=== PATIENT | female | born 1960 ===

== ENCOUNTER 2016-07-09 17:33 | Emergency (ER) | payer BC ==
[2016-07-09 17:33] VITALS: BMI 24.0
[2016-07-09 17:37] VITALS: PULSE 62; RESP 16; O2SAT 100
[2016-07-09] MEDS ORDERED: Sodium Chloride 0.9% 1,000 ML IV STA (18:10)
--- NOTE | 2016-07-09 18:10 | ED PDOC ---
HPI: Abdomen Time Seen by Provider: 07/09/16 17:46 Chief Complaint (Nursing): GI Problem Chief Complaint (Provider): Vomit History Per: Patient History/Exam Limitations: no limitations Onset/Duration Of Symptoms: Days (Today) Outside of [place] travel?: No Current Symptoms Are (Timing): Still Present Additional Complaint(s): Nausea, vomit, nonbloody after eating chicken and pasta today. No diarrhea. Has left upper side abd pain as well. No dysuria. No back pain, cough, congestion, runny nose, chest pain, dyspnea, palpitations. No fever. No leg pain. Past Medical History Reviewed: Nursing Documentation, Vital Signs Vital Signs: Last Vital Signs Temp 97.8 F 07/09/16 17:35 Pulse 62 07/09/16 17:35 Resp 16 07/09/16 17:35 BP 150/81 07/09/16 17:35 Pulse Ox 100 07/09/16 18:28 - Medical History PMH: Anemia (due to vaginal bleeding), Atrial Fibrillation (Isolated episode (1x )) Denies: Alzheimer's Disease, Anxiety, Arthritis, Asthma, Bipolar Disorder, Bronchitis, CAD, Cardia Arrhythmia, CHF, COPD, Crohn's Disease, Dementia, Depression, Diverticulitis, Emphysema, Fractures, Gastritis, Gall Bladder Disease, HIV, HTN, Hypercholesterolemia, Hyperthyroidism, Kidney Stones, Migraine, Mitral Valve Prolapse, Multiple Sclerosis, Osteoporosis, Pancreatitis , Paranoia, Parkinson's Disease, Peripheral Edema, Pneumonia, Post Traumatic Stress Disorder, Pulmonary Embolism, Chronic Kidney Disease, Rheumatoid Arthritis, Schizophrenia, Seizures, Sickle Cell Disease, Sexually Transmitted Disease, Sleep Apnea, TIA Other PMH: thyroid dz - Surgical History Surgical History: Tonsillectomy Denies: Appendectomy, CABG, Carotid Endarterectomy, Cholecystectomy, Coronary Stent, Pacemaker - Family History Family History: States: Unknown Family Hx - Social History Current smoker - smoking cessation education provided: No Alcohol: None Drugs: Denies - Home Medications Home Medications: Ambulatory Orders Medication Instructions Recorded Aspirin [Aspirin Chewable] 81 mg PO DAILY #0 chew 12/14/14 Aspirin [Aspirin Chewable] 81 mg PO DAILY #30 chew 03/03/16 Levothyroxine [Synthroid] 75 mcg PO DAILY@0630 03/03/16 Levothyroxine [Synthroid] 75 mcg PO DAILY@629 #30 tab 03/03/16 Metoprolol Tartrate [Lopressor] 25 mg PO Q8 #90 tab 03/03/16 Ondansetron [Zofran] 4 mg PO Q8H PRN #6 tab 07/09/16 - Allergies Allergies/Adverse Reactions: Allergies Allergy/AdvReac Type Severity Reaction Status Date / Time diphenhydramine HCl Allergy DIZZINESS Verified 07/09/16 17:35 [From Benadryl] Penicillins Allergy RASH Verified 07/09/16 17:35 Review of Systems ROS Statement: Except As Marked, All Systems Reviewed And Found Negative Gastrointestinal: Positive for: Nausea, Vomiting, Abdominal Pain Physical Exam - Reviewed Nursing Documentation Reviewed: Yes Vital Signs Reviewed: Yes - Physical Exam Appears: Positive for: Non-toxic, No Acute Distress Head Exam: Positive for: ATRAUMATIC, NORMAL INSPECTION, NORMOCEPHALIC Skin: Positive for: Normal Color, Warm, DRY Eye Exam: Positive for: EOMI, Normal appearance, PERRL ENT: Positive for: Normal ENT Inspection Neck: Positive for: Normal, Painless ROM Cardiovascular/Chest: Positive for: Regular Rate, Rhythm Respiratory: Positive for: CNT, Normal Breath Sounds Gastrointestinal/Abdominal: Positive for: Bowel Sounds, Soft, Tenderness (mild tender upper left abd lateral) Back: Positive for: Normal Inspection. Negative for: L CVA Tenderness, R CVA Tenderness Extremity: Positive for: Normal ROM. Negative for: Tenderness, Pedal Edema Neurologic/Psych: Positive for: Alert, Oriented - Laboratory Results Result Diagrams: 07/09/16 18:21 07/09/16 18:21 Interpretation Of Abn Labs: 11 wbc, 21 bun - ECG O2 Sat by Pulse Oximetry: 100 Pulse Ox Interpretation: Normal - Progress ED Course And Treament: 1843: Stable. AAOx3. Symptoms improved. Pt. 11 wbc likely reactive from nausea/vomit/pain. Tolerated PO. Fu with pcp. Disposition - Clinical Impression Clinical Impression: Diarrhea, Vomiting, Abdominal pain - Patient ED Disposition Is Patient to be Admitted: No Counseled Patient/Family Regarding: Studies Performed, Diagnosis, Need For Followup, Rx Given - Disposition Referrals: [facility] [Outside] - 07/13/16 Disposition: Routine/Home Disposition Time: 18:46 Condition: STABLE Additional Instructions: Return if not better in 3 days. Prescriptions: Ondansetron [Zofran] 4 mg PO Q8H PRN #6 tab PRN Reason: Nausea/Vomiting Instructions: Acute Nausea and Vomiting (ED), Acute Diarrhea (ED), Acute Abdominal Pain (ED)
[2016-07-09 18:30] LABS: BASO % 0.2 % (0.0-2.0); EOS % 0.1 % (0.0-4.0); HEMATOCRIT 45.2 % (34.0-47.0); LYMPH # 0.8 K/uL (1.0-4.3); LYMPH % 7.5 % (20.0-40.0); MEAN CELL VOLUME 78.2 fl (81.0-99.0); MEAN CORPUSCULAR HEMOGLOBIN 24.6 pg (27.0-31.0); MEAN CORPUSCULAR HGB CONC 31.5 g/dL (33.0-37.0); MONO # 0.6 K/uL (0.0-0.8); MONO % 5.3 % (0.0-10.0); NEUT # 9.6 K/uL (1.8-7.0); NEUT % 86.9 % (50.0-75.0); PLATELET COUNT 243 K/uL (130-400); RED CELL DISTRIBUTION WIDTH 14.9 % (11.5-14.5)
[2016-07-09 18:41] LABS: ALB/GLOB RATIO 1.6 (1.0-2.1); ALKALINE PHOSPHATASE 73 U/L (38-126); ALT/SGPT 38 U/L (9-52); AST/SGOT 29 U/L (14-36); BILIRUBIN,TOTAL 0.3 mg/dl (0.2-1.3); BLOOD UREA NITROGEN 21 mg/dl (7-17); CALCIUM 10.4 mg/dL (8.4-10.2); CARBON DIOXIDE 25 mmol/L (22-30); CHLORIDE 104 mmol/L (98-107); GFR AFRICAN-AMERICAN > 60; GLUCOSE,RANDOM 123 mg/dL (65-105); LIPASE 184 U/L (23-300); POTASSIUM 3.9 MMOL/L (3.6-5.0); SODIUM 140 mmol/l (132-148)
[2016-07-09 20:36] VITALS: BP 136/75; TEMP 98.9
[2016-07-09 21:44] LABS: NEUTROPHIL 82 % (42-75); TOTAL CELLS COUNTED 100
== END 2016-07-09 19:45 | disposition home or self-care (01) ==
LOC: H.ER 17:33
DX: R11.2 Nausea with vomiting, unspecified (principal); R19.7 Diarrhea, unspecified
CPT/HCPCS: 80053; 82948; 83690; 85025; 96374; 96375; 99285; J1885; J2405; J7040

== ENCOUNTER 2016-07-23 16:44 | Emergency (ER) | payer BC ==
[2016-07-23 16:44] VITALS: BMI 24.0
[2016-07-23 16:58] VITALS: BP 109/78; PULSE 63; RESP 16; TEMP 98; O2SAT 99
--- NOTE | 2016-07-23 17:15 | ED PDOC ---
Lower Extremity Pain/Injury Time Seen by Provider: 07/23/16 17:14 Chief Complaint (Nursing): Lower Extremity Problem/Injury Chief Complaint (Provider): leg pain History Per: Patient History/Exam Limitations: no limitations Onset/Duration Of Symptoms: Persistent (2 weeks ) Current Symptoms Are (Timing): Still Present Severity: Moderate Additional Complaint(s): Karly Martell is a 56 y/o female presenting to the ER on 07/23/2016 with complaints of persistent left leg pain x2 weeks. Patient denies any trauma to the affected area. She states the pain has been progressively getting worse over the past two weeks, prompting her to seek medical evaluation. No fever or chills, no recent travel. Past Medical History Reviewed: Historical Data, Nursing Documentation, Vital Signs Vital Signs: Last Vital Signs Temp 98.0 F 07/23/16 16:56 Pulse 63 07/23/16 16:56 Resp 16 07/23/16 16:56 BP 109/78 07/23/16 16:56 Pulse Ox 99 07/23/16 16:56 - Medical History PMH: Atrial Fibrillation (Isolated episode (1x)), Hypothyroidism - Surgical History Surgical History: Tonsillectomy - Family History Family History: States: No Known Family Hx - Living Arrangements Living Arrangements: With Family - Social History Current smoker - smoking cessation education provided: No Alcohol: None Drugs: Denies - Home Medications Home Medications: Ambulatory Orders Medication Instructions Recorded Aspirin [Aspirin Chewable] 81 mg PO DAILY #0 chew 12/14/14 Aspirin [Aspirin Chewable] 81 mg PO DAILY #30 chew 03/03/16 Levothyroxine [Synthroid] 75 mcg PO DAILY@0630 03/03/16 Levothyroxine [Synthroid] 75 mcg PO DAILY@0630 #30 tab 03/03/16 Metoprolol Tartrate [Lopressor] 25 mg PO Q8 #90 tab 03/03/16 Ondansetron [Zofran] 4 mg PO Q8H PRN #6 tab 07/09/16 - Allergies Allergies/Adverse Reactions: Allergies Allergy/AdvReac Type Severity Reaction Status Date / Time diphenhydramine HCl Allergy DIZZINESS Verified 07/23/16 16:55 [From Benadryl] Penicillins Allergy RASH Verified 07/23/16 16:55 Wells Criteria for PE - Wells Criteria for Pulmonary Embolism Clinical Signs and Symptoms of DVT: No P.E is #1 Diagnosis, or Equally Likely: No Heart Rate >100: No Immobilization at least 3 days;Surgery previous 4 weeks: No Previous, objectively diagnosed PE or DVT: No Hemoptysis: No Malignancy w/treatment within 6 months, or palliative: No Total Score: 0 Review of Systems ROS Statement: Except As Marked, All Systems Reviewed And Found Negative Constitutional: Negative for: Fever Cardiovascular: Negative for: Chest Pain Respiratory: Negative for: Cough Gastrointestinal: Negative for: Nausea, Vomiting Musculoskeletal: Positive for: Leg Pain ((+) left) Neurological: Negative for: Weakness, Numbness Physical Exam - Reviewed Nursing Documentation Reviewed: Yes Vital Signs Reviewed: Yes - Physical Exam Appears: Positive for: Non-toxic, No Acute Distress Head Exam: Positive for: ATRAUMATIC, NORMOCEPHALIC Skin: Positive for: Normal Color. Negative for: Rash Eye Exam: Positive for: Normal appearance Extremity: Positive for: Normal ROM ((+) full ROM on left knee, hip, and ankle) , Tenderness ((+) ttp w/ slight ecchymosis to left anterior bartholomew), Calf Tenderness ((+) minimum ttp ), Other ((+) normal distal sensation left leg). Negative for: Deformity, Swelling Neurologic/Psych: Positive for: Alert, Oriented, Gait (steady). Negative for: Motor/Sensory Deficits - ECG O2 Sat by Pulse Oximetry: 99 Pulse Ox Interpretation: Normal - Other Rad Left tib/fib x-ray X-Ray: Interpreted by Me, Viewed By Me X-Ray Interpretation: no fx, no dis Doppler left leg X-Ray: Read By Radiologist X-Ray Interpretation: no DVT Medical Decision Making Medical Decision Makin:14 Initial Impression- 56 y/o female with left leg pain Initial Plan- * Tylenol 650 mg PO * US Duplex Lower Extremity * XR Tibia Fibula * Re-evaluate 18:48 Ultrasound and XR are both negative. Case was d/w PMD Dr. Fitzgerald who is aware of diagnostic testing results and agrees with plan to discharge patient and have her follow up this coming Wednesday as scheduled in his office. Pt was instructed to rest leg and apply ice , and take tylenol as needed for pain. Documented by Oracio Mckenna, acting as a scribe for Paula Lujan PA-C All medical record entries made by the Scribe were at my direction and personally dictated by me. I have reviewed the chart and agree that the record accurately reflects my personal performance of the history, physical exam, medical decision making, and the department course for this patient. I have also personally directed, reviewed, and agree with the discharge instructions and disposition. Disposition - Clinical Impression Clinical Impression: Left leg pain - Patient ED Disposition Is Patient to be Admitted: No Counseled Patient/Family Regarding: Studies Performed, Diagnosis, Need For Followup - Disposition Referrals: Ekaterina Fitzgerald MD [Family Provider] - Disposition: Routine/Home Disposition Time: 19:08 Condition: STABLE Additional Instructions: Ice, rest and elevate affected leg as often as possible. Tylenol every 4-6 hours as needed for pain. Follow-up as scheduled next Wednesday with your primary doctor. Return to emergency department sooner for acutely worsening symptoms. Instructions: Leg Pain (ED)
--- NOTE | 2016-07-23 18:37 | US ---
Left lower extremity ultrasound Indication: Pain, swelling Technique: Duplex ultrasound evaluation of the left lower extremity Comparison: None available Findings: There is normal flow, compressibility, and augmentation of the left common femoral, femoral, and popliteal veins. The left posterior tibial vein appears patent. Impression: No evidence of deep venous thrombosis in the left lower extremity.
--- NOTE | 2016-07-24 08:34 | RAD ---
PROCEDURE: Radiographs of the left tibia and fibula. HISTORY: trauma COMPARISON: None available. TECHNIQUE: Frontal and lateral views obtained. FINDINGS: BONES: No fracture or destructive lesion. JOINT SPACES: Unremarkable. OTHER FINDINGS: None. IMPRESSION: No evidence of acute fracture or dislocation.
== END 2016-07-23 19:05 | disposition home or self-care (01) ==
LOC: H.ER 16:44
DX: M79.605 Pain in left leg (principal)

== ENCOUNTER 2016-08-28 02:01 | Emergency (ER) | payer BC ==
[2016-08-28 02:01] VITALS: BMI 24.0
[2016-08-28 02:09] VITALS: BP 131/71; RESP 14; TEMP 97.9; O2SAT 100
[2016-08-28] MEDS ORDERED: Sodium Chloride 0.9% 1,000 ML IV STA (02:39)
[2016-08-28 03:13] LABS: BASO % 0.8 % (0.0-2.0); EOS # 0.1 K/uL (0.0-0.7); EOS % 2.7 % (0.0-4.0); HEMOGLOBIN 12.9 g/dL (12.0-16.0); LYMPH # 1.6 K/uL (1.0-4.3); MEAN CELL VOLUME 77.8 fl (81.0-99.0); MEAN CORPUSCULAR HEMOGLOBIN 24.6 pg (27.0-31.0); MEAN CORPUSCULAR HGB CONC 31.6 g/dL (33.0-37.0); MEAN PLATELET VOLUME 8.8 fl (7.2-11.7); MONO # 0.4 K/uL (0.0-0.8); MONO % 9.7 % (0.0-10.0); NEUT # 1.8 K/uL (1.8-7.0); NEUT % 44.8 % (50.0-75.0); RBC 5.24 Mil/uL (3.80-5.20); RED CELL DISTRIBUTION WIDTH 15.6 % (11.5-14.5); WHITE BLOOD COUNT 3.9 K/uL (4.8-10.8)
[2016-08-28 03:47] LABS: BLOOD UREA NITROGEN 19 mg/dl (7-17); CALCIUM 9.5 mg/dL (8.4-10.2); GFR AFRICAN-AMERICAN > 60; GFR NON-AFRICAN AMERICAN > 60
[2016-08-28 04:10] VITALS: PULSE 59
--- NOTE | 2016-08-28 04:10 | ED PDOC ---
Syncope/Near Syncope/Dizziness Time Seen by Provider: 08/28/16 02:09 Chief Complaint (Nursing): Abdominal Pain Chief Complaint (Provider): Abdominal Pain History Per: Patient History/Exam Limitations: no limitations Onset/Duration Of Symptoms: Hrs ((19:00)) Current Symptoms Are (Timing): Still Present Associated Symptoms Preceding Syncopal Episode: Lightheadedness Seizure Or Post-ictal Symptoms: None Fall Associated With With Symptoms: No Additional Complaint(s): 56 y/o female patient presenting to the ED with nausea and dizziness. Patient states that during the day she was hot and sweaty and around 19:00 last night she began experiencing dizziness, nausea and vomiting. Patient states she was unsure if what she was experiencing was a spinning sensation or dizziness and it worsened in the middle of the night. Her dizziness is worse when turning her head to the right. She reports left ear congestion as well. Pt admits to history of vertigo many years ago. The nausea experienced had bits of spitting involved and she denies any diarrhea or abdominal pain but some epigastric discomfort. She also states she had some left-sided chest pain that lasted a while but then resolved itself. Patient has a past medical history of Atrial fibrillation which she takes Metoprolol for in addition to a hyperthyroid issue. Her primary care doctor is Dr. Ekaterina Fitzgerald. Past Medical History Reviewed: Historical Data, Nursing Documentation, Vital Signs Vital Signs: Last Vital Signs Temp 97.9 F 08/28/16 02:06 Pulse 64 08/28/16 02:06 Resp 14 08/28/16 02:06 BP 131/71 08/28/16 02:06 Pulse Ox 100 08/28/16 02:06 - Medical History PMH: Anemia (due to vaginal bleeding), Atrial Fibrillation (Isolated episode (1x )), Hypothyroidism Denies: Alzheimer's Disease, Anxiety, Arthritis, Asthma, Bipolar Disorder, Bronchitis, CAD, Cardia Arrhythmia, CHF, COPD, Crohn's Disease, Dementia, Depression, Diverticulitis, Emphysema, Fractures, Gastritis, Gall Bladder Disease, HIV, HTN, Hypercholesterolemia, Hyperthyroidism, Kidney Stones, Migraine, Mitral Valve Prolapse, Multiple Sclerosis, Osteoporosis, Pancreatitis , Paranoia, Parkinson's Disease, Peripheral Edema, Pneumonia, Post Traumatic Stress Disorder, Pulmonary Embolism, Chronic Kidney Disease, Rheumatoid Arthritis, Schizophrenia, Seizures, Sickle Cell Disease, Sexually Transmitted Disease, Sleep Apnea, TIA - Surgical History Surgical History: Tonsillectomy Denies: Appendectomy, CABG, Carotid Endarterectomy, Cholecystectomy, Coronary Stent, Pacemaker - Family History Family History: States: Unknown Family Hx - Social History Current smoker - smoking cessation education provided: No Alcohol: None Drugs: Denies - Home Medications Home Medications: Ambulatory Orders Medication Instructions Recorded Aspirin [Aspirin Chewable] 81 mg PO DAILY #0 chew 12/14/14 Aspirin [Aspirin Chewable] 81 mg PO DAILY #30 chew 03/03/16 Levothyroxine [Synthroid] 75 mcg PO DAILY@0630 03/03/16 Levothyroxine [Synthroid] 75 mcg PO DAILY@0630 #30 tab 03/03/16 Metoprolol Tartrate [Lopressor] 25 mg PO Q8 #90 tab 03/03/16 Ondansetron [Zofran] 4 mg PO Q8H PRN #6 tab 07/09/16 Meclizine [Meclizine*] 25 mg PO TID PRN #30 tab 08/28/16 - Allergies Allergies/Adverse Reactions: Allergies Allergy/AdvReac Type Severity Reaction Status Date / Time diphenhydramine HCl Allergy DIZZINESS Verified 08/28/16 02:06 [From Benadryl] Penicillins Allergy RASH Verified 08/28/16 02:06 Review of Systems ROS Statement: Except As Marked, All Systems Reviewed And Found Negative Constitutional: Negative for: Fever Cardiovascular: Positive for: Chest Pain ((Resolved earlier today)) Respiratory: Negative for: Cough, Shortness of Breath Gastrointestinal: Positive for: Nausea, Vomiting, Other ((+)Epigastric Discomfort). Negative for: Abdominal Pain, Diarrhea Neurological: Positive for: Dizziness. Negative for: Change in Speech Physical Exam - Reviewed Nursing Documentation Reviewed: Yes Vital Signs Reviewed: Yes - Physical Exam Appears: Positive for: Non-toxic, No Acute Distress Head Exam: Positive for: ATRAUMATIC, NORMAL INSPECTION, NORMOCEPHALIC Skin: Positive for: Normal Color, Warm, Dry Eye Exam: Positive for: Normal appearance, EOMI, PERRL. Negative for: Nystagmus ENT: Positive for: Normal ENT Inspection Neck: Positive for: Normal, Painless ROM, Supple Cardiovascular/Chest: Positive for: Regular Rate, Rhythm. Negative for: Murmur Respiratory: Positive for: Normal Breath Sounds. Negative for: Respiratory Distress Gastrointestinal/Abdominal: Positive for: Normal Exam, Soft. Negative for: Tenderness Extremity: Positive for: Normal ROM. Negative for: Tenderness Neurologic/Psych: Positive for: Alert, Oriented, Gait (steady). Negative for: Motor/Sensory Deficits - Laboratory Results Result Diagrams: 08/28/16 03:06 08/28/16 03:06 - ECG ECG Rhythm: Positive for: Normal QRS, Sinus Rhythm, Sinus Bradycardia. Negative for: ST/T Changes Rate: 59 O2 Sat by Pulse Oximetry: 100 (RA) Pulse Ox Interpretation: Normal - CT Scan/US CT head Other Rad Studies (CT/US): Read By Radiologist, Radiology Report Reviewed Other Rad Interpretation: no acute findings - Progress Re-evaluation Time: 05:09 Condition: Re-examined, Improved Medical Decision Making Medical Decision Making: Time: 237 Initial impression: Cardiac arrhythmia versus Vertigo . Initial plan: --HEAD CT --EKG --EKG-ED --MECLIZINE --SODIUM CHLORIDE --ONDANSETRON Scribe Attestation: Documented by Ernestina Sanchez, acting as a scribe for Cortney Jameson MD. Scribe Attestation: All medical record entries made by the Scribe were at my direction and personally dictated by me. I have reviewed the chart and agree that the record accurately reflects my personal performance of the history, physical exam, medical decision making, and the department course for this patient. I have also personally directed, reviewed, and agree with the discharge instructions and disposition. Disposition - Clinical Impression Clinical Impression: Vertigo - Patient ED Disposition Is Patient to be Admitted: No Doctor Will See Patient In The: Office Counseled Patient/Family Regarding: Studies Performed, Diagnosis, Need For Followup - Disposition Referrals: Ekaterina Fitzgerald MD [Primary Care Provider] - Antonio Bosch MD [Staff Provider] - Disposition: Routine/Home Disposition Time: 05:10 Condition: GOOD Additional Instructions: Follow up with your PCP in 2-3 days. Prescriptions: Meclizine [Meclizine*] 25 mg PO TID PRN #30 tab PRN Reason: Dizziness Instructions: Vertigo (ED)
--- NOTE | 2016-08-28 08:15 | CT ---
PROCEDURE: CT HEAD WITHOUT CONTRAST. HISTORY: dizziness COMPARISON: None available. TECHNIQUE: Axial computed tomography images were obtained through the head/brain without intravenous contrast. Radiation dose: Total exam DLP = 850.17 mGy-cm. This CT exam was performed using one or more of the following dose reduction techniques: Automated exposure control, adjustment of the mA and/or kV according to patient size, and/or use of iterative reconstruction technique. FINDINGS: HEMORRHAGE: No intracranial hemorrhage. BRAIN: No mass effect or edema. No atrophy or chronic microvascular ischemic changes. VENTRICLES: Unremarkable. No hydrocephalus. CALVARIUM: Unremarkable. PARANASAL SINUSES: Mucosal retention cyst versus polyp at the left maxillary sinus was noted. MASTOID AIR CELLS: Unremarkable as visualized. No inflammatory changes. OTHER FINDINGS: None. IMPRESSION: No evidence of acute intracranial hemorrhage intracranial collection mass effect or midline shift. Mucosal retention cyst versus polyp at the left maxillary sinus. Preliminary report was submitted by [facility].
--- NOTE | 2016-08-28 16:05 | CARD ---
APPROVED REPORT EKG Measurement Heart [id number] <Conclusion> Sinus bradycardia Nonspecific T wave abnormality Abnormal ECG
== END 2016-08-28 06:30 | disposition home or self-care (01) ==
LOC: H.ER 02:01
DX: R42 Dizziness and giddiness (principal); R10.9 Unspecified abdominal pain; E03.9 Hypothyroidism, unspecified; I48.91 Unspecified atrial fibrillation; Z79.82 Long term (current) use of aspirin; Z88.0 Allergy status to penicillin
CPT/HCPCS: 70450; 80048; 84484; 85025; 93005; 96360; 99284; J2405; J7040

== ENCOUNTER 2018-05-16 07:49 | Day surgery (SDC) | payer BC ==
[2018-05-16 08:15] VITALS: BMI 28.1
[2018-05-16] MEDS ORDERED: Lactated Ringer's 500 ML IV ONE ×2 (08:15→10:20)
[2018-05-16] MEDS ORDERED: Propofol 10 mg/ml Inj (20 ML) ONE ×2 (09:41→09:46)
[2018-05-16 10:31] VITALS: TEMP 97.2
[2018-05-16 10:53] VITALS: BP 116/63; PULSE 80; RESP 20; O2SAT 100
== END 2018-05-16 11:20 | disposition home or self-care (01) ==
LOC: H.ENDO 07:49
PROVIDERS: ATTEND Internal Medicine Gastroenterology
DX: Z12.11 Encounter for screening for malignant neoplasm of colon (principal); E03.9 Hypothyroidism, unspecified; K64.8 Other hemorrhoids; K29.50 Unspecified chronic gastritis without bleeding
CPT/HCPCS: 43239; 88305; J2001; J2704; J7120